=== PATIENT | male | born 1975 | race African-American/Black ===

== ENCOUNTER 2016-12-24 20:02 | Inpatient (IN) | payer SELFPAY ==
[~2016-12-24] VITALS: Ht 160 cm; Wt 117.5 kg
[2016-12-24] MEDS ORDERED: ASPIRIN 81MG TABLET PO ONE (23:45)
[2016-12-24] MEDS ORDERED: NITROGLYCERIN 0.4MG TABLET SL SL PRN (23:45)
[2016-12-24] MEDS ORDERED: NITROGLYCERIN OINT 1GM/INCH UDPKT TD ONE (23:45)
[2016-12-25 00:06] LABS: BASOPHILS % 1.2 % (0.0-2.0); EOSINOPHILS % 2.5 % (0.0-5.0); HEMATOCRIT. 44.3 % (42.0-52.0); HEMOGLOBIN. 15.8 g/dL (14.0-18.0); MEAN CORPUSCULAR HEMOGLOBIN 29.7 pg (28.0-32.0); MEAN CORPUSCULAR VOLUME 83.3 fL (80.0-94.0); MEAN PLATELET VOLUME 10.3 fl (7.4-10.4); MONOCYTES % 6.3 % (2.0-8.0); PLATELET 239 x1000/uL (130-400); RED BLOOD CELL COUNT 5.32 mill/uL (4.7-6.1); RED CELL DISTRIBUTION WIDTH 15.3 % (11.6-14.6)
[2016-12-25 00:14] LABS: INR 1.1
[2016-12-25] MEDS ORDERED: ASPIRIN 325MG TABLET PO ONE (00:15)
[2016-12-25 00:28] LABS: CARBON DIOXIDE 27 mEq/L (21-32); CHLORIDE 106 mEq/L (98-107); TROPONIN I < 0.02 ng/mL (0.00-0.04)
[2016-12-25] MEDS ORDERED: ACETAMINOPHEN 650MG/20.3ML UDC GT PRN (08:00)
[2016-12-25] MEDS ORDERED: NA PHOS,M-B/NA PHOS,DI-BA ENEMA 118ML PR PRN (08:00)
[2016-12-25] MEDS ORDERED: ACETAMINOPHEN 325MG TABLET PO PRN (08:00)
[2016-12-25] MEDS ORDERED: IPRATROPIUM/ALBUTEROL 0.5-3(2.5)MG/3ML NEB INH PRN (08:00)
[2016-12-25] MEDS ORDERED: ONDANSETRON HCL 4MG/2ML VIAL IV PRN (08:00)
[2016-12-25] MEDS ORDERED: ACETAMINOPHEN 650MG SUPP PR PRN (08:00)
[2016-12-25] MEDS ORDERED: DOCUSATE SODIUM 100MG CAPSULE PO PRN (08:00)
[2016-12-25] MEDS ORDERED: ENOXAPARIN 40MG/0.4ML SYR SUBCUT SCH (08:00)
[2016-12-25] MEDS ORDERED: GUAIFENESIN 200MG/10ML SUGAR FREE UDC PO PRN (08:00)
[2016-12-25] MEDS ORDERED: DIPHENHYDRAMINE 50MG/ML VIAL IV PRN (08:00)
[2016-12-25] MEDS ORDERED: MAGNESIUM/ALUMINUM HYDROXIDE/SIMETHICONE 30ML UDC PO PRN (08:00)
[2016-12-25] MEDS ORDERED: HYDROCODONE/ACETAMINOPHEN 5/325MG TABLET PO PRN (08:00)
[2016-12-25 08:34] LABS: BASOPHILS % 1.2 % (0.0-2.0); EOSINOPHILS % 4.3 % (0.0-5.0); HEMATOCRIT. 42.2 % (42.0-52.0); LYMPHOCYTES % 38.2 % (20.0-50.0); MEAN CORPUSCULAR HEMOGLOBIN 29.3 pg (28.0-32.0); MEAN CORPUSCULAR VOLUME 82.6 fL (80.0-94.0); MEAN PLATELET VOLUME 9.9 fl (7.4-10.4); MONOCYTES % 8.3 % (2.0-8.0); PLATELET 234 x1000/uL (130-400); RED BLOOD CELL COUNT 5.11 mill/uL (4.7-6.1); RED CELL DISTRIBUTION WIDTH 15.2 % (11.6-14.6)
[2016-12-25 08:50] LABS: CARBON DIOXIDE 27 mEq/L (21-32); CHLORIDE 107 mEq/L (98-107)
[2016-12-25] MEDS: CLONIDINE 0.1MG TABLET PO PRN ×3 (08:54→22:41)
[2016-12-25 12:44] VITALS: BP 169/110
[2016-12-25] MEDS ORDERED: LISINOPRIL (12:48)
[2016-12-25] MEDS ORDERED: VITAMIN D (12:48)
[2016-12-25] MEDS ORDERED: ASPI-1159 PO (12:48)
[2016-12-25] MEDS ORDERED: HYDR25TA PO (12:48)
[2016-12-25] MEDS ORDERED: CLONIDINE (12:49)
[2016-12-25 12:59] VITALS: BP 169/110
[2016-12-25] MEDS: ENOXAPARIN 40MG/0.4ML SYR SUBCUT SCH ×2 (14:55→22:40)
[2016-12-25] MEDS: SODIUM CHLORIDE 0.9% INJ 3ML FLUSH IVF SCH ×2 (14:58→22:39)
[2016-12-25 16:00] VITALS: BP 187/119
[2016-12-25 16:40] LABS: CREATINE KINASE 101 IU/L (39-308); TROPONIN I < 0.02 ng/mL (0.00-0.04)
[2016-12-25 18:09] VITALS: BP 150/107
[2016-12-25] MEDS: AMLODIPINE 10MG TABLET PO SCH (18:47)
[2016-12-25 20:00] VITALS: BP 153/98
[2016-12-26] VITALS: BP 171/110
[2016-12-26 00:06] LABS: CREATINE KINASE 101 IU/L (39-308); TROPONIN I < 0.02 ng/mL (0.00-0.04)
[2016-12-26 04:00] VITALS: BP 148/101
[2016-12-26] MEDS: CLONIDINE 0.1MG TABLET PO PRN (04:44)
[2016-12-26 05:47] VITALS: BP 148/101
[2016-12-26] MEDS: SODIUM CHLORIDE 0.9% INJ 3ML FLUSH IVF SCH (06:47)
[2016-12-26 07:13] LABS: HEMATOCRIT. 41.9 % (42.0-52.0); HEMOGLOBIN. 14.8 g/dL (14.0-18.0); LYMPHOCYTES % 43.6 % (20.0-50.0); MEAN CORPUSCULAR HEMOGLOBIN 29.3 pg (28.0-32.0); MEAN CORPUSCULAR VOLUME 82.8 fL (80.0-94.0); MEAN PLATELET VOLUME 10.4 fl (7.4-10.4); MONOCYTES % 7.2 % (2.0-8.0); NEUTROPHILS % 44.2 % (40.0-76.0); PLATELET 215 x1000/uL (130-400); RED BLOOD CELL COUNT 5.06 mill/uL (4.7-6.1); RED CELL DISTRIBUTION WIDTH 15.1 % (11.6-14.6)
[2016-12-26 07:33] LABS: CARBON DIOXIDE 28 mEq/L (21-32); CHLORIDE 105 mEq/L (98-107); HDL CHOLESTEROL 41 mg/dL (40-59); LDL CHOLESTEROL 57 mg/dL (5-100)
[2016-12-26] MEDS: AMLODIPINE 10MG TABLET PO SCH (08:29)
[2016-12-26] MEDS: ENOXAPARIN 40MG/0.4ML SYR SUBCUT SCH (08:29)
[2016-12-26] MEDS ORDERED: COR6 PO (12:37)
[2016-12-26] MEDS ORDERED: AMLO10TA80 PO (12:37)
[2016-12-26] MEDS ORDERED: ASPI-1159 PO (12:37)
[2016-12-26 12:42] VITALS: BP 157/101
[2016-12-26] MEDS ORDERED: CARVEDILOL 6.25 MG TABLET PO SCH ×2 (12:45→21:00)
[2016-12-26 14:25] VITALS: BP 140/89
[2016-12-26 14:26] VITALS: BP 140/89
== END 2016-12-26 15:10 | disposition home or self-care (01) | DRG 203 ==
LOC: ER 20:02 → 6WST 12-25 01:12 → EDBEDREQTM 12-25 01:16 → EDBEDREQ 12-25 01:16 → ENRESERV 12-25 10:05 → 6WST 12-25 13:11
PROVIDERS: ADMIT Family Medicine; ATTEND Family Medicine
DX: R07.9 Chest pain, unspecified (principal); I42.9 Cardiomyopathy, unspecified; Z68.42 Body mass index [BMI] 45.0-49.9, adult; I11.0 Hypertensive heart disease with heart failure; I50.9 Heart failure, unspecified; E66.01 Morbid (severe) obesity due to excess calories; F17.200 Nicotine dependence, unspecified, uncomplicated; Z91.013 Allergy to seafood
CPT/HCPCS: 36415; 70450; 71010; 80053; 80061; 82550; 83880; 84484; 85025; 85610; 93005; 93306; 99285; J1650